=== PATIENT | female | born 1950 | race Caucasian/White ===

== ENCOUNTER 2024-04-20 14:39 | Outpatient (CLI) | payer MEDICARE | END 2024-04-20 14:40 | disposition home or self-care (01) | LOC: CSHMAMMO 14:39 | PROVIDERS: ATTEND Internal Medicine | DX: Z78.0 Asymptomatic menopausal state (principal); M81.0 Age-related osteoporosis without current pathological fracture | CPT/HCPCS: 77080 ==

== ENCOUNTER 2024-05-26 13:28 | Outpatient (CLI) | payer MEDICARE | END 2024-05-26 13:29 | disposition home or self-care (01) | LOC: CSHMAMMO 13:28 | PROVIDERS: ATTEND Internal Medicine | DX: N64.4 Mastodynia (principal); R22.2 Localized swelling, mass and lump, trunk | CPT/HCPCS: 76642; 77066; G0279 ==

== ENCOUNTER 2024-07-24 08:41 | Outpatient (CLI) | payer MEDICARE ==
[2024-07-24] MEDS ORDERED: Iopamidol 300 61% 100 ML VIAL FS ONE (10:26)
== END 2024-07-24 08:42 | disposition home or self-care (01) ==
LOC: CSHCT 08:41
PROVIDERS: ATTEND Surgery
DX: M79.89 Other specified soft tissue disorders (principal); K76.89 Other specified diseases of liver; R91.1 Solitary pulmonary nodule; I31.39 Other pericardial effusion (noninflammatory); K44.9 Diaphragmatic hernia without obstruction or gangrene
CPT/HCPCS: 71260; 82565

== ENCOUNTER 2025-07-20 12:56 | Outpatient (CLI) | payer MEDICARE | END 2025-07-20 12:57 | disposition home or self-care (01) | LOC: CSHMAMMO 12:56 | PROVIDERS: ATTEND Internal Medicine | DX: Z12.31 Encounter for screening mammogram for malignant neoplasm of breast (principal); Z85.828 Personal history of other malignant neoplasm of skin | CPT/HCPCS: 77063; 77067 ==